=== PATIENT | female | born 1990 ===

== ENCOUNTER 2022-03-16 07:15 | Inpatient (IN) | payer OTHER ==
[~2022-03-16] VITALS: Ht 152.4 cm; Wt 59.9 kg
[2022-03-16] MEDS ORDERED: IRON PO (08:45)
[2022-03-16] MEDS ORDERED: [UNRECOGNIZED DRUG - OTHER] PO (08:46)
[2022-03-16] MEDS ORDERED: [UNRECOGNIZED DRUG - OTHER] PO (08:46)
[2022-03-24] MEDS ORDERED: VALACYCLOVIR500 MG (13:45)
[2022-03-24] MEDS ORDERED: PRENATAL + DHA1 EAC1 (13:46)
[2022-03-24] MEDS ORDERED: IRON236 MG PO (13:46)
[2022-03-27] MEDS ORDERED: KETO10TA2 PO (09:20)
[2022-03-27] MEDS ORDERED: OXYC1TAB9 PO (09:21)
== END 2022-03-27 13:59 | disposition home or self-care (01) | DRG 788 ==
LOC: OB/GYN 03-24 07:15 → O/R 03-24 08:00 → SURG-SUITE 03-24 08:00 → OB/GYN 03-24 08:45 → SURG-SUITE 03-24 13:03
PROVIDERS: ADMIT Obstetrics & Gynecology; ATTEND Obstetrics & Gynecology
PROC: 0UB90ZZ Excision of Uterus, Open Approach (ICD-10-PCS; 2022-03-24)
PROC: 4A1HXCZ Monitoring of Products of Conception, Cardiac Rate, External Approach (ICD-10-PCS; 2022-03-24)
PROC: 10D00Z1 Extraction of Products of Conception, Low, Open Approach (ICD-10-PCS; principal; 2022-03-24 08:45)
DX: O32.1XX0 Maternal care for breech presentation, not applicable or unspecified (principal); O34.13 Maternal care for benign tumor of corpus uteri, third trimester; D25.9 Leiomyoma of uterus, unspecified; Z3A.39 39 weeks gestation of pregnancy; Z37.0 Single live birth; Z20.822 Contact with and (suspected) exposure to COVID-19

== ENCOUNTER 2022-03-17 08:40 | Outpatient (CLI) | payer OTHER ==
[~2022-03-17 08:40] MED LIST: IRON PO; [UNRECOGNIZED DRUG - OTHER] PO; [UNRECOGNIZED DRUG - OTHER] PO
== END 2022-03-17 10:25 | disposition home or self-care (01) ==
LOC: NST 08:40
PROVIDERS: ATTEND Obstetrics & Gynecology
DX: Z34.83 Encounter for supervision of other normal pregnancy, third trimester (principal)

== ENCOUNTER 2024-08-13 05:56 | Emergency (ER) | payer OTHER ==
[~2024-08-13] VITALS: Ht 152.4 cm; Wt 53.5 kg
[~2024-08-13 05:56] MED LIST changes: +IRON236 MG PO; +KETO10TA2 PO; +OXYC1TAB9 PO; +PRENATAL + DHA1 EAC1; +VALACYCLOVIR500 MG
[2024-08-13] MEDS ORDERED: PROMETHAZINE HCL 25 MG/ML AMPUL IM STA (07:03)
[2024-08-13] MEDS ORDERED: FAMOTIDINE/PF 20 MG/2 ML VIAL IV PUSH STA (07:03)
[2024-08-13] MEDS ORDERED: LACTOBACILLUS ACIDOPHILUS 1 CAP CAP PO STA (07:03)
[2024-08-13] MEDS ORDERED: 0.9 % SODIUM CHLORIDE 1,000 ML IV ONE (07:15)
[2024-08-13 07:44] LABS: HEMATOCRIT 35.9 % (36.0-45.00); HEMOGLOBIN 11.9 g/dL (12.0-15.00); MEAN CELL VOLUME 87.6 fL (80.00-100.00); MEAN CORPUSCULAR HEMOGLOBIN 29.1 pg (27.00-32.0); MEAN CORPUSCULAR HGB CONC 33.3 g/dl (32.0-36.0); PLATELET COUNT 358 K/uL (150-450); RED BLOOD COUNT 4.09 M/uL (4.00-6.00); RED CELL DISTRIBUTION WIDTH 13.4 % (11.5-14.5)
[2024-08-13 08:07] LABS: CALCIUM 8.1 mg/dL (8.5-10.1); CREATININE SERUM 0.41 mg/dL (0.55-1.02); GFR 178.66; POTASSIUM 3.97 mEq/L (3.5-5.1)
[2024-08-13 10:39] LABS: PH,URINE 7.5 (5.0-8.0); URINE APPEARANCE Clear; URINE BILIRRUBIN Negative (NEGATIVE); URINE BLOOD Negative; URINE COLOR Yellow; URINE GLUCOSE Negative (NEGATIVE); URINE KETONE 15 (NEGATIVE); URINE LEUKOCYTE Negative; URINE NITRATE Negative; URINE PROTEIN Negative (NEGATIVE)
[2024-08-13 10:43] LABS: URINE BACTERIA 186.4 uL (0.0-1933); URINE RBC 13.2 uL (0.0-20.8); URINE WBC 7.5 uL (0.0-23.2)
[2024-08-13 10:54] LABS: URINE CAST 0.15 uL (0.0-1.40)
[2024-08-13] MEDS ORDERED: PEPCID AC20 MG PO (12:01)
[2024-08-13] MEDS ORDERED: ZOFRAN8 MG PO (12:01)
== END 2024-08-13 12:40 | disposition home or self-care (01) ==
LOC: ER 05:56
PROVIDERS: General Practice
DX: O99.612 Diseases of the digestive system complicating pregnancy, second trimester (principal); K52.9 Noninfective gastroenteritis and colitis, unspecified; Z3A.24 24 weeks gestation of pregnancy

== ENCOUNTER 2024-10-19 14:26 | Outpatient (CLI) | payer OTHER ==
[~2024-10-19 14:26] MED LIST changes: +PEPCID AC20 MG PO; +ZOFRAN8 MG PO
== END 2024-10-19 15:01 | disposition home or self-care (01) ==
LOC: NST 14:26
PROVIDERS: ATTEND Obstetrics & Gynecology
DX: Z34.83 Encounter for supervision of other normal pregnancy, third trimester (principal)

== ENCOUNTER 2024-11-15 10:22 | Outpatient (CLI) | payer OTHER | END 2024-11-15 11:26 | disposition home or self-care (01) | LOC: NST 10:22 | PROVIDERS: ATTEND Obstetrics & Gynecology | DX: Z34.83 Encounter for supervision of other normal pregnancy, third trimester (principal) ==

== ENCOUNTER 2024-11-22 09:45 | Inpatient (IN) | payer OTHER ==
[~2024-11-22] VITALS: Ht 152.4 cm; Wt 2.7 kg
[2024-11-22 11:52] LABS: HEMATOCRIT 33.9 % (36.0-45.00); MEAN CELL VOLUME 79.3 fL (80.00-100.00); MEAN CORPUSCULAR HEMOGLOBIN 25.6 pg (27.00-32.0); MEAN CORPUSCULAR HGB CONC 32.3 g/dl (32.0-36.0); PLATELET COUNT 352 K/uL (150-450); RED BLOOD COUNT 4.28 M/uL (4.00-6.00); RED CELL DISTRIBUTION WIDTH 15.4 % (11.5-14.5)
[2024-11-22 12:08] LABS: INR < 0.93; PARTIAL THROMBOPLASTIN TIME 24.5 SECONDS (22.0-34.0); PROTHROMBIN TIME 9.8 SECONDS (9.0-11.5)
[2024-11-22 12:36] LABS: ALBUMIN 2.9 gm/dL (3.4-5.0); BILIRUBIN TOTAL 0.28 mg/dL (0.3-1.2); CALCIUM 9.1 mg/dL (8.5-10.1); CREATININE SERUM 0.5 mg/dL (0.55-1.02); GFR 142.09; GLOBULINA 4.1 G/DL (2.4-3.5); POTASSIUM 4.88 mEq/L (3.5-5.1)
[2024-11-26 08:32] VITALS: BP 112/73
[2024-11-26] MEDS ORDERED: CITRIC ACID/SODIUM CITRATE 30 ML BLIST.PACK PO NR (10:00)
[2024-11-26] MEDS ORDERED: CEFOXITIN SODIUM 2,000 MG VIAL IV ONE (10:00)
[2024-11-26] MEDS ORDERED: RINGERS SOLUTION,LACTATED 1,000 ML IV SCH ×2 (10:15→15:15)
[2024-11-26] MEDS ORDERED: ERYTHROMYCIN BASE OPHT 1GM EACH TUBE OP ONE (11:30)
[2024-11-26] MEDS ORDERED: OXYTOCIN 10 UNITS/ML VIAL ONE ×2 (11:30→15:43)
[2024-11-26 11:38] VITALS: BP 116/73; O2SAT 99
[2024-11-26] MEDS ORDERED: PRENATA CHEWAB1 EACH PO (12:15)
[2024-11-26] MEDS ORDERED: MORPHINE SULFATE 4 MG/ML VIAL IV ONE (14:15)
[2024-11-26] MEDS ORDERED: KETOROLAC TROMETHAMINE 30 MG VIAL ONE (15:06)
[2024-11-26] MEDS ORDERED: MEPERIDINE HCL/PF 25 MG/ML VIAL IM PRN (15:15)
[2024-11-26] MEDS ORDERED: OXYTOCIN 20 UNITS in RINGERS SOLUTION,LACTATED 1,000 ML IV SCH (15:15)
[2024-11-26] MEDS ORDERED: KETOROLAC TROMETHAMINE 30 MG VIAL IM NR (15:15)
[2024-11-26] MEDS ORDERED: PROMETHAZINE HCL 25 MG/ML AMPUL IM PRN (15:15)
[2024-11-26] MEDS ORDERED: KETOROLAC TROMETHAMINE 30 MG VIAL IM ONE (15:15)
[2024-11-26] MEDS ORDERED: CEFAZOLIN SODIUM 1,000 MG VIAL ONE (15:26)
[2024-11-26] MEDS ORDERED: PROMETHAZINE HCL 25 MG/ML AMPUL ONE (16:00)
[2024-11-26] MEDS ORDERED: MEPERIDINE HCL 50 MG/ML AMPUL IM ONE (16:15)
[2024-11-26 17:00] VITALS: BP 124/78
[2024-11-26] MEDS ORDERED: CEFAZOLIN SODIUM 1,000 MG VIAL IV SCH (17:00)
[2024-11-26] MEDS ORDERED: SIMETHICONE 125 MG CAPSULE PO SCH (17:00)
[2024-11-26 17:06] LABS: HEMATOCRIT 28.2 % (36.0-45.00); HEMOGLOBIN 9.3 g/dL (12.0-15.00); MEAN CELL VOLUME 78.5 fL (80.00-100.00); MEAN CORPUSCULAR HEMOGLOBIN 25.8 pg (27.00-32.0); MEAN CORPUSCULAR HGB CONC 32.9 g/dl (32.0-36.0); PLATELET COUNT 284 K/uL (150-450); RED BLOOD COUNT 3.59 M/uL (4.00-6.00)
[2024-11-26] MEDS ORDERED: KETOROLAC TROMETHAMINE 10 MG TABLET PO SCH (18:00)
[2024-11-26 23:51] VITALS: BP 105/69
[2024-11-27 01:11] VITALS: BP 111/67
[2024-11-27 06:14] LABS: HEMATOCRIT 27.6 % (36.0-45.00); MEAN CELL VOLUME 79.2 fL (80.00-100.00); MEAN CORPUSCULAR HGB CONC 33.1 g/dl (32.0-36.0); PLATELET COUNT 263 K/uL (150-450); RED BLOOD COUNT 3.48 M/uL (4.00-6.00); RED CELL DISTRIBUTION WIDTH 15.9 % (11.5-14.5)
[2024-11-27 06:16] LABS: HEMOGLOBIN 9.1 g/dL (12.0-15.00); MEAN CORPUSCULAR HEMOGLOBIN 26.1 pg (27.00-32.0)
[2024-11-27] MEDS ORDERED: OxyCODONE HCL/APAP UD (PERCOCET) PO SCH (08:00)
[2024-11-27 08:11] VITALS: BP 107/67
[2024-11-27 15:43] VITALS: BP 113/72
[2024-11-28 02:18] VITALS: BP 117/78
[2024-11-28 08:00] VITALS: BP 108/71
[2024-11-28 21:16] VITALS: BP 120/77
[2024-11-29] VITALS: BP 113/79
[2024-11-29] MEDS ORDERED: KETO10TA2 PO (07:47)
[2024-11-29] MEDS ORDERED: OXYC1TAB9 PO (07:48)
[2024-11-29 08:00] VITALS: BP 109/69
== END 2024-11-29 14:47 | disposition home or self-care (01) | DRG 788 ==
LOC: O/R 11-26 09:31 → LDR 11-26 09:31 → O/R 11-26 13:05 → OB/GYN 11-26 13:26
PROVIDERS: Obstetrics & Gynecology Maternal & Fetal Medicine; ADMIT Obstetrics & Gynecology; ATTEND Obstetrics & Gynecology
PROC: 4A1HXCZ Monitoring of Products of Conception, Cardiac Rate, External Approach (ICD-10-PCS; 2024-11-26)
PROC: 10D00Z1 Extraction of Products of Conception, Low, Open Approach (ICD-10-PCS; principal; 2024-11-26 12:30)
DX: O34.211 Maternal care for low transverse scar from previous cesarean delivery (principal); Z3A.39 39 weeks gestation of pregnancy; Z37.0 Single live birth